=== PATIENT | female | born 1990 | race Caucasian/White ===

== ENCOUNTER 2018-01-19 20:39 | Emergency (ER) | payer BC, OTHER ==
[2018-01-19] MEDS ORDERED: Sodium Chloride 0.9% 10 ML Syringe FLUSH PRN (20:57)
[2018-01-19] MEDS ORDERED: Ondansetron 4 MG/2 ML SDV IVPUSH ONE (21:20)
[2018-01-19] MEDS ORDERED: Sodium Chloride 0.9% 1,000 ML IV ONE ×2 (21:20→22:23)
[2018-01-19 21:24] LABS: CHLORIDE,CL 104 mmol/L (98-107); SODIUM,NA 139 mmol/L (136-145)
[2018-01-19] MEDS ORDERED: Ketorolac 30 MG/ML SDV IVPUSH ONE (21:36)
[2018-01-19] MEDS ORDERED: Loperamide 2 MG Tab PO ONE (21:37)
--- NOTE | 2018-01-19 21:48 | EDM.PDOC ---
ED HPI GENERAL MEDICAL PROBLEM - General Chief Complaint: Gastrointestinal Problem Stated Complaint: nausea, vomitting, diarrhea Time Seen by Provider: 01/19/18 21:19 Source of Information: Reports: Patient History Limitations: Reports: No Limitations - History of Present Illness INITIAL COMMENTS - FREE TEXT/NARRATIVE: Patient comes to ER with complaint of lightheadedness with recent history of vomiting and loose stools. Illness began yesterday. Thinks that she vomited over a dozen times. Today she had diarrhea, 6-8 bowel movements. No obvious blood, however stools were a bit dark. Last BM was around 6pm. No fevers/chills. No respiratory complaints. Tried to take Imodium yesterday but threw it up. Tried to drink milk today but threw that up. Not much PO intake over the last 24+ hours. Was trying to head to work at [employer] but felt lightheaded as she drove. No other complaints. Hx of GERD and anxiety. Abdomen Pain Score (Numeric/FACES): 6 Headache Pain Score (Numeric/FACES): 6 - Related Data Allergies Allergy/AdvReac Type Severity Reaction Status Date / Time No Known Allergies Allergy Verified 01/19/18 20:48 Home Meds: Home Meds Citalopram [Citalopram HBr] 20 mg PO DAILY 01/19/18 [History] Omeprazole 20 mg PO DAILY 01/19/18 [History] Oxybutynin [Oxybutynin ER] 5 mg PO DAILY 01/19/18 [History] Past Medical History Gastrointestinal History: Reports: GERD Psychiatric History: Reports: Anxiety - History Comment History Comment: excess sweating Social & Family History - Tobacco Use Smoking Status *Q: Former Smoker Years of Tobacco use: 2 Packs/Tins Daily: 1 Used Tobacco, but Quit: Yes Month/Year Tobacco Last Used: 1 - Caffeine Use Caffeine Use: Reports: Coffee - Recreational Drug Use Recreational Drug Use: No ED ROS GENERAL - Review of Systems Review Of Systems: See Below Constitutional: Reports: Fatigue, Decreased Appetite. Denies: Fever, Chills, Diaphoresis HEENT: Reports: No Symptoms Respiratory: Reports: No Symptoms Cardiovascular: Reports: Lightheadedness. Denies: Palpitations, Syncope GI/Abdominal: Reports: Abdominal Pain (crampy), Diarrhea, Decreased Appetite, Nausea, Vomiting. Denies: Black Stool, Bloody Stool, Difficulty Swallowing, Distension, Hematemesis, Hematochezia : Reports: No Symptoms Musculoskeletal: Reports: No Symptoms Skin: Reports: No Symptoms Neurological: Denies: Confusion, Headache, Syncope, Difficulty Walking, Change in Speech, Gait Disturbance Psychiatric: Reports: No Symptoms ED EXAM, GI/ABD - Physical Exam Exam: See Below Exam Limited By: No Limitations General Appearance: Alert, WD/WN, No Apparent Distress Eyes: Bilateral: Normal Appearance, EOMI Ears: Normal External Exam Nose: Normal Inspection Throat/Mouth: Normal Inspection, Normal Lips, Normal Voice, No Airway Compromise Head: Atraumatic, Normocephalic Neck: Normal Inspection, Supple, Non-Tender, Full Range of Motion. No: Lymphadenopathy (L), Lymphadenopathy (R) Respiratory/Chest: No Respiratory Distress, Lungs Clear, Normal Breath Sounds, No Accessory Muscle Use Cardiovascular: Normal Peripheral Pulses, Regular Rate, Rhythm, No Murmur GI/Abdominal Exam: Normal Bowel Sounds, Soft, No Distention, Tender (mild diffuse tenderness throughout) (Female) Exam: Deferred Rectal (Female) Exam: Heme - Stool Back Exam: Normal Inspection Extremities: Normal Range of Motion, Non-Tender, No Pedal Edema, Slow Capillary Refill (3-4 seconds) Neurological: Alert, Oriented, Normal Cognition, Normal Gait, No Motor/Sensory Deficits Psychiatric: Normal Affect, Normal Mood Skin Exam: Warm, Dry, Intact, Normal Color Course - Vital Signs Last Recorded V/S: Last Vital Signs Temp 36.8 C 01/19/18 20:39 Pulse 59 L 01/19/18 20:39 Resp 16 01/19/18 20:39 BP 108/58 L 01/19/18 20:39 Pulse Ox 99 01/19/18 20:39 - Orders/Labs/Meds Orders: Active Orders 24 hr Category Date Time Status HCG QUALITATIVE,URINE [URCHEM] Stat Lab 01/19/18 20:57 Ordered UA W/MICROSCOPIC [URIN] Stat Lab 01/19/18 20:57 Ordered VITAMIN D,25-HYDROXY [CHEM] Routine Lab 01/19/18 21:28 Ordered Sodium Chloride 0.9% [Normal Saline] 1,000 ml Med 01/19/18 21:20 Ordered IV .BOLUS Sodium Chloride 0.9% [Saline Flush] Med 01/19/18 20:57 Active 10 ml FLUSH ASDIRECTED PRN Saline Lock Insert [OM.PC] Routine Oth 01/19/18 20:57 Ordered Medication Orders Sodium Chloride (Normal Saline) 1,000 mls @ 999 mls/hr IV .BOLUS ONE Stop: 01/19/18 22:20 Last Admin: 01/19/18 21:29 Dose: 999 mls/hr Sodium Chloride (Saline Flush) 10 ml FLUSH ASDIRECTED PRN PRN Reason: Keep Vein Open Labs: Laboratory Tests 01/19/18 01/19/18 01/19/18 Range/Units 20:15 20:57 20:57 WBC (4.0-10.2) K/uL RBC (3.77-5.09) M/uL Hgb (11.7-15.5) g/dL Hct (34.0-46.0) % MCV (84.0-98.0) fL MCH (28.2-33.3) pg MCHC (31.7-36.0) g/dL RDW (11.2-14.1) % Plt Count (150-350) K/uL Neut % (Auto) (45.0-80.0) % Lymph % (Auto) (10.0-50.0) % [place] % (Auto) (2.0-14.0) % Eos % (Auto) (0.0-5.0) % Baso % (Auto) (0.0-2.0) % Neut # (Auto) (1.40-7.00) K/uL Lymph # (Auto) (0.50-3.50) K/uL [place] # (Auto) (0.00-1.00) K/uL Eos # (Auto) (0.00-0.50) K/uL Baso # (Auto) (0.00-0.20) K/uL Sodium 139 (136-145) mmol/L Potassium 3.8 (3.5-5.1) mmol/L Chloride 104 (98-107) mmol/L Carbon Dioxide 25.2 (21.0-32.0) mmol/L BUN 14 (7-18) mg/dL Creatinine 0.78 (0.51-1.17) mg/dL Est Cr Clr Drug Dosing 115.23 mL/min Estimated GFR (MDRD) > 60 mL/min Glucose 95 (74-106) mg/dL Calcium 9.1 (8.5-10.1) mg/dL Magnesium (1.8-2.4) mg/dL Total Bilirubin 1.0 (0.2-1.0) mg/dL AST 19 (15-37) U/L ALT 30 (12-78) U/L Alkaline Phosphatase 59 (46-116) IU/L Total Protein 7.1 (6.4-8.2) g/dL Albumin 3.9 (3.4-5.0) g/dL Specimen Type Urinblad Urine Color Yellow Urine Appearance Clear Urine pH 5.0 (5.0-9.0) Ur Specific [place] >= 1.030 (1.005-1.030) Urine Protein Negative (NEGATIVE) mg/dL Urine Glucose (UA) Negative (NEGATIVE) mg/dL Urine Ketones Trace H (NEGATIVE) mg/dL Urine Occult Blood Trace-lysed H (NEGATIVE) Urine Nitrite Negative (NEGATIVE) Urine Bilirubin Small H (NEGATIVE) Urine Urobilinogen 0.2 (0.2-1.0) E.U./dL Ur Leukocyte Esterase Negative (NEGATIVE) Urine RBC 0-5 /HPF Urine WBC 0-5 /HPF Ur Epithelial Cells Moderate H /LPF Urine Bacteria Few (NONE TO FEW) /HPF Urine HCG, Qual Negative 01/19/18 01/19/18 Range/Units 21:05 21:05 WBC 6.1 (4.0-10.2) K/uL RBC 4.54 (3.77-5.09) M/uL Hgb 13.9 (11.7-15.5) g/dL Hct 41.0 (34.0-46.0) % MCV 90.3 (84.0-98.0) fL MCH 30.6 (28.2-33.3) pg MCHC 33.9 (31.7-36.0) g/dL RDW 12.3 (11.2-14.1) % Plt Count 186 (150-350) K/uL Neut % (Auto) 58.2 (45.0-80.0) % Lymph % (Auto) 32.7 (10.0-50.0) % [place] % (Auto) 8.1 (2.0-14.0) % Eos % (Auto) 0.7 (0.0-5.0) % Baso % (Auto) 0.3 (0.0-2.0) % Neut # (Auto) 3.52 (1.40-7.00) K/uL Lymph # (Auto) 1.98 (0.50-3.50) K/uL [place] # (Auto) 0.49 (0.00-1.00) K/uL Eos # (Auto) 0.04 (0.00-0.50) K/uL Baso # (Auto) 0.02 (0.00-0.20) K/uL Sodium (136-145) mmol/L Potassium (3.5-5.1) mmol/L Chloride (98-107) mmol/L Carbon Dioxide (21.0-32.0) mmol/L BUN (7-18) mg/dL Creatinine (0.51-1.17) mg/dL Est Cr Clr Drug Dosing mL/min Estimated GFR (MDRD) mL/min Glucose (74-106) mg/dL Calcium (8.5-10.1) mg/dL Magnesium 1.9 (1.8-2.4) mg/dL Total Bilirubin (0.2-1.0) mg/dL AST (15-37) U/L ALT (12-78) U/L Alkaline Phosphatase (46-116) IU/L Total Protein (6.4-8.2) g/dL Albumin (3.4-5.0) g/dL Specimen Type Urine Color Urine Appearance Urine pH (5.0-9.0) Ur Specific [place] (1.005-1.030) Urine Protein (NEGATIVE) mg/dL Urine Glucose (UA) (NEGATIVE) mg/dL Urine Ketones (NEGATIVE) mg/dL Urine Occult Blood (NEGATIVE) Urine Nitrite (NEGATIVE) Urine Bilirubin (NEGATIVE) Urine Urobilinogen (0.2-1.0) E.U./dL Ur Leukocyte Esterase (NEGATIVE) Urine RBC /HPF Urine WBC /HPF Ur Epithelial Cells /LPF Urine Bacteria (NONE TO FEW) /HPF Urine HCG, Qual Meds: Medications Generic Name Dose Route Start Last Admin Trade Name Freq PRN Reason Stop Dose Admin Sodium Chloride 1,000 mls @ 999 mls/hr 01/19/18 21:20 01/19/18 21:29 Normal Saline IV 06/25/18 22:20 999 mls/hr .BOLUS ONE Administration Sodium Chloride 10 ml 01/19/18 20:57 Saline Flush FLUSH ASDIRECTED PRN Keep Vein Open Discontinued Medications Generic Name Dose Route Start Last Admin Trade Name Woody PRN Reason Stop Dose Admin Ketorolac Tromethamine 30 mg 01/19/18 21:36 Toradol IVPUSH 01/19/18 21:37 ONETIME ONE Loperamide HCl 4 mg 01/19/18 21:37 Imodium Ad PO 01/19/18 21:38 ONETIME ONE Ondansetron HCl 4 mg 01/19/18 21:20 01/19/18 21:31 Zofran IVPUSH 01/19/18 21:21 4 mg ONETIME ONE Administration - Re-Assessments/Exams Free Text/Narrative Re-Assessment/Exam: 01/19/18 22:26 Patient received IV fluid bolus (sluggish cap refill suggested dehydration) as well as Zofran, Toradol, and Imodium. Second liter of fluid added as patient did not feel urge to void after first liter infused. She felt improved overall. Note given for patient to miss work tonight. To follow up tomorrow for recheck if no additional improvement is noted. Departure - Departure Disposition: Home, Self-Care 01 Condition: Good Clinical Impression: Gastroenteritis, Dehydration - Discharge Information Instructions: Dehydration, Adult, [id number] Additional Instructions: Drink plenty of fluids. Advance diet as tolerated. Avoid dairy for the next 2-3 days. Follow up as needed if you continue to have problems. - My Orders Last 24 Hours: My Active Orders 01/19/18 20:57 HCG QUALITATIVE,URINE [URCHEM] Stat UA W/MICROSCOPIC [URIN] Stat Sodium Chloride 0.9% [Saline Flush] 10 ml FLUSH ASDIRECTED PRN Saline Lock Insert [OM.PC] Routine 01/19/18 21:20 Sodium Chloride 0.9% [Normal Saline] 1,000 ml IV .BOLUS 01/19/18 21:28 VITAMIN D,25-HYDROXY [CHEM] Routine - Assessment/Plan Last 24 Hours: My Active Orders 01/19/18 20:57 HCG QUALITATIVE,URINE [URCHEM] Stat UA W/MICROSCOPIC [URIN] Stat Sodium Chloride 0.9% [Saline Flush] 10 ml FLUSH ASDIRECTED PRN Saline Lock Insert [OM.PC] Routine 01/19/18 21:20 Sodium Chloride 0.9% [Normal Saline] 1,000 ml IV .BOLUS 01/19/18 21:28 VITAMIN D,25-HYDROXY [CHEM] Routine
== END 2018-01-19 23:46 | disposition home or self-care (01) ==
LOC: LL.ED 20:39
DX: K52.9 Noninfective gastroenteritis and colitis, unspecified (principal); E86.0 Dehydration; K21.9 Gastro-esophageal reflux disease without esophagitis; F41.9 Anxiety disorder, unspecified; Z87.891 Personal history of nicotine dependence; Z79.899 Other long term (current) drug therapy
CPT/HCPCS: 36415; 80053; 81001; 81025; 82272; 82306; 83735; 85025; 96361; 96374; 99284; A9270-GY; J1885; J2405; J7030

== ENCOUNTER 2019-05-02 21:56 | Emergency (ER) | payer BC ==
[2019-05-02] MEDS ORDERED: NS + KCl 20mEq/L 1,000 ML IV SCH (22:15)
[2019-05-02] MEDS: Sodium Chloride 0.9% 10 ML Syringe FLUSH PRN ×2 (22:30→22:45)
[2019-05-02] MEDS ORDERED: Metoclopramide 10 MG/2 ML SDV IVPUSH ONE (22:36)
--- NOTE | 2019-05-02 22:42 | EDM.PDOC ---
ED HPI GENERAL MEDICAL PROBLEM - General Chief Complaint: General Stated Complaint: emesis, fever Time Seen by Provider: 05/02/19 22:00 Source of Information: Reports: Patient History Limitations: Reports: No Limitations - History of Present Illness INITIAL COMMENTS - FREE TEXT/NARRATIVE: Patient seen with multiple emesis which started about 3 days ago today unable to tolerate liquids will go ahead and start an IV fluids and start her on Reglan which is a category B antibiotic Onset: Gradual Duration: Day(s): Location: Reports: Abdomen Quality: Reports: Ache Severity: Moderate Improves with: Reports: None Worsens with: Reports: Eating Associated Symptoms: Reports: Nausea/Vomiting - Related Data Allergies Allergy/AdvReac Type Severity Reaction Status Date / Time No Known Allergies Allergy Verified 05/02/19 21:57 Home Meds: Home Meds Citalopram [Citalopram HBr] 20 mg PO DAILY 01/19/18 [History] Omeprazole 20 mg PO DAILY 01/19/18 [History] Oxybutynin [Oxybutynin ER] 5 mg PO DAILY 01/19/18 [History] PNV95/Ferrous Fumarate/FA [ Vitamin Tablet] 1 tab PO DAILY 05/02/19 [ History] Past Medical History Gastrointestinal History: Reports: GERD Other Gastrointestinal History: stomach ulcer Psychiatric History: Reports: Anxiety - History Comment History Comment: excess sweating Social & Family History - Tobacco Use Smoking Status *Q: Former Smoker Used Tobacco, but Quit: Yes Month/Year Tobacco Last Used: 03/2019 - Caffeine Use Caffeine Use: Reports: Coffee - Recreational Drug Use Recreational Drug Use: No ED ROS GENERAL - Review of Systems Review Of Systems: See Below Constitutional: Reports: Other (Emesis) HEENT: Reports: No Symptoms Respiratory: Reports: No Symptoms Cardiovascular: Reports: No Symptoms Endocrine: Reports: No Symptoms GI/Abdominal: Reports: No Symptoms : Reports: No Symptoms Musculoskeletal: Reports: No Symptoms Skin: Reports: No Symptoms Neurological: Reports: No Symptoms Psychiatric: Reports: No Symptoms Hematologic/Lymphatic: Reports: No Symptoms ED EXAM, GENERAL - Physical Exam Exam: See Below Exam Limited By: No Limitations General Appearance: Alert, WD/WN, No Apparent Distress Ears: Normal External Exam, Normal Canal, Hearing Grossly Normal, Normal TMs Ear Exam: Bilateral Ear: Auricle Normal, Canal Normal, TM normal Nose: Normal Inspection, Normal Mucosa, No Blood Throat/Mouth: Normal Inspection, Normal Lips, Normal Teeth, Normal Gums, Normal Oropharynx, Normal Voice, No Airway Compromise Head: Atraumatic, Normocephalic Neck: Normal Inspection, Supple, Non-Tender, Full Range of Motion Respiratory/Chest: No Respiratory Distress, Lungs Clear, Normal Breath Sounds, No Accessory Muscle Use, Chest Non-Tender Cardiovascular: Normal Peripheral Pulses, Regular Rate, Rhythm, No Edema, No Gallop, No JVD, No Murmur, No Rub GI/Abdominal: Normal Bowel Sounds, Soft, Non-Tender, No Organomegaly, No Distention, No Abnormal Bruit, No Mass Back Exam: Decreased Range of Motion Extremities: Normal Inspection, Normal Range of Motion, Non-Tender, Normal Capillary Refill, No Pedal Edema Neurological: Alert, Oriented, CN II-XII Intact, Normal Cognition, Normal Gait, Normal Reflexes, No Motor/Sensory Deficits Psychiatric: Normal Affect, Normal Mood Skin Exam: Warm, Dry, Intact, Normal Color, No Rash Lymphatic: No Adenopathy Course - Vital Signs Last Recorded V/S: Last Vital Signs Temp 98.4 F 05/02/19 22:01 Pulse 67 05/02/19 22:01 Resp 16 05/02/19 22:01 BP 111/59 L 05/02/19 22:01 Pulse Ox 100 05/02/19 22:01 - Orders/Labs/Meds Orders: Active Orders 24 hr Category Date Time Status UA W/MICROSCOPIC [URIN] Stat Lab 05/02/19 22:41 Ordered NS + KCl 20mEq/L [Normal Saline with 20 mEq KCl] 1,000 Med 05/02/19 22:15 Active ml IV ASDIRECTED Sodium Chloride 0.9% [Saline Flush] Med 05/02/19 22:09 Active 10 ml FLUSH ASDIRECTED PRN Saline Lock Insert [OM.PC] Stat Oth 05/02/19 22:10 Ordered Medication Orders Potassium Chloride/Sodium Chloride (Normal Saline With 20 Meq Kcl) 1,000 mls @ 999 mls/hr IV ASDIRECTED ANA LAURA Last Admin: 05/02/19 22:30 Dose: 999 mls/hr Sodium Chloride (Saline Flush) 10 ml FLUSH ASDIRECTED PRN PRN Reason: Keep Vein Open Last Admin: 05/02/19 22:45 Dose: 10 ml Admin: 05/02/19 22:30 Dose: 10 ml Labs: Laboratory Tests 05/02/19 05/02/19 Range/Units 22:16 22:16 WBC 5.2 (4.0-10.2) K/uL RBC 4.43 (3.77-5.09) M/uL Hgb 13.4 (11.7-15.5) g/dL Hct 39.1 (34.0-46.0) % MCV 88.3 (84.0-98.0) fL MCH 30.2 (28.2-33.3) pg MCHC 34.3 (31.7-36.0) g/dL RDW 13.1 (11.2-14.1) % Plt Count 183 (150-350) K/uL Neut % (Auto) 55.7 (45.0-80.0) % Lymph % (Auto) 35.3 (10.0-50.0) % [place] % (Auto) 7.6 (2.0-14.0) % Eos % (Auto) 1.0 (0.0-5.0) % Baso % (Auto) 0.4 (0.0-2.0) % Neut # (Auto) 2.92 (1.40-7.00) K/uL Lymph # (Auto) 1.85 (0.50-3.50) K/uL [place] # (Auto) 0.40 (0.00-1.00) K/uL Eos # (Auto) 0.05 (0.00-0.50) K/uL Baso # (Auto) 0.02 (0.00-0.20) K/uL Sodium 139 (136-145) mmol/L Potassium 3.9 (3.5-5.1) mmol/L Chloride 105 (98-107) mmol/L Carbon Dioxide 20.8 L (21.0-32.0) mmol/L BUN 11 (7-18) mg/dL Creatinine 0.61 (0.51-1.17) mg/dL Est Cr Clr Drug Dosing 146.06 mL/min Estimated GFR (MDRD) > 60 mL/min Glucose 85 (74-106) mg/dL Calcium 9.1 (8.5-10.1) mg/dL Meds: Medications Generic Name Dose Route Start Last Admin Trade Name Freq PRN Reason Stop Dose Admin Potassium Chloride/Sodium Chloride 1,000 mls @ 999 mls/hr 05/02/19 22:15 01/13 22:30 Normal Saline With 20 Meq Kcl IV 999 mls/hr ASDIRECTED ANA LAURA Administration Sodium Chloride 10 ml 05/02/19 22:09 05/02/19 22:45 Saline Flush FLUSH 10 ml ASDIRECTED PRN Administration Keep Vein Open Discontinued Medications Generic Name Dose Route Start Last Admin Trade Name Woody PRN Reason Stop Dose Admin Metoclopramide HCl 10 mg 05/02/19 22:36 05/02/19 22:44 Reglan IVPUSH 05/02/19 22:37 10 mg ONETIME ONE Administration Departure - Departure Time of Disposition: 23:34 Disposition: Home, Self-Care 01 Condition: Fair Clinical Impression: Hyperemesis gravidarum with dehydration - Discharge Information *PRESCRIPTION DRUG MONITORING PROGRAM REVIEWED*: No *COPY OF PRESCRIPTION DRUG MONITORING REPORT IN PATIENT VESTA: No Referrals: Jovi Foss, PA [Primary Care Provider] - Forms: ED Department Discharge Care Plan Goals: Patient placed on IV normal saline 1 L will be given Reglan 10 mg IV will be given if tolerating well she will be sent home to follow-up with her [employer] - My Orders Last 24 Hours: My Active Orders 05/02/19 22:09 Sodium Chloride 0.9% [Saline Flush] 10 ml FLUSH ASDIRECTED PRN 05/02/19 22:10 Saline Lock Insert [OM.PC] Stat 05/02/19 22:15 NS + KCl 20mEq/L [Normal Saline with 20 mEq KCl] 1,000 ml IV ASDIRECTED 05/02/19 22:41 UA W/MICROSCOPIC [URIN] Stat - Assessment/Plan Last 24 Hours: My Active Orders 05/02/19 22:09 Sodium Chloride 0.9% [Saline Flush] 10 ml FLUSH ASDIRECTED PRN 05/02/19 22:10 Saline Lock Insert [OM.PC] Stat 05/02/19 22:15 NS + KCl 20mEq/L [Normal Saline with 20 mEq KCl] 1,000 ml IV ASDIRECTED 05/02/19 22:41 UA W/MICROSCOPIC [URIN] Stat
[2019-05-02 22:44] LABS: CHLORIDE,CL 105 mmol/L (98-107); SODIUM,NA 139 mmol/L (136-145)
== END 2019-05-03 | disposition home or self-care (01) ==
LOC: LL.ED 21:56
DX: O21.1 Hyperemesis gravidarum with metabolic disturbance (principal); O99.611 Diseases of the digestive system complicating pregnancy, first trimester; K21.9 Gastro-esophageal reflux disease without esophagitis; Z79.899 Other long term (current) drug therapy; Z87.891 Personal history of nicotine dependence; Z3A.12 12 weeks gestation of pregnancy
CPT/HCPCS: 36415; 80048; 81001; 85025; 96361; 96374; 99284; J2765; J3480

== ENCOUNTER 2020-11-30 07:49 | Day surgery (SDC) | payer BC, OTHER ==
[2020-11-30] MEDS ORDERED: Sodium Chloride 0.9% 10 ML Syringe FLUSH PRN (08:00)
[2020-11-30] MEDS ORDERED: Propofol 200 MG/20 ML SDV ONE ×2 (08:29→09:00)
[2020-11-30] MEDS ORDERED: Midazolam 1 MG/ML 2 ML SDV ONE ×2 (08:29→09:00)
[2020-11-30] MEDS: Lactated Ringers 1,000 ML IV SCH (08:45)
[2020-11-30] MEDS ORDERED: Lidocaine 0.5% 50 ML SDV ONE (09:00)
--- NOTE | 2020-11-30 09:07 | PCM.PN ---
- General Info Date of Service: 11/30/20 - Review of Systems Systems Review Comment:: 30-year-old female with history of bilateral carpal tunnel syndrome here for right carpal tunnel release. The patient is medically stable to proceed today. Her recent history and physical is reviewed and no significant changes are noted. The site is confirmed with the patient and marked. I have again discussed the proposed operative procedure with the patient. Perioperative instructions and expectations are reviewed. Questions were answered. She agrees to proceed. - Patient Data Vitals - Most Recent: Last Vital Signs Temp 97.6 F 11/30/20 08:28 Pulse 73 11/30/20 08:28 Resp 18 11/30/20 08:28 BP 113/70 11/30/20 08:28 Pulse Ox 98 11/30/20 08:28 Weight - Most Recent: 116.12 kg Lab Results Last 24 Hours: Laboratory Results - last 24 hr 11/30/20 Range/Units 08:04 Urine HCG, Qual Negative Med Orders - Current: Current Medications Lactated Ringer's (Ringers, Lactated) 1,000 mls @ 125 mls/hr IV ASDIRECTED ANA LAURA Last Admin: 11/30/20 08:45 Dose: 125 mls/hr Documented by: Sodium Chloride (Sodium Chloride 0.9% 10 Ml Syringe) 10 ml FLUSH ASDIRECTED PRN PRN Reason: Keep Vein Open Discontinued Medications Midazolam HCl (Midazolam 1 Mg/Ml 2 Ml Sdv) Confirm Administered Dose 4 mg .ROUTE .STK-MED ONE Stop: 11/30/20 08:30 Propofol (Propofol 200 Mg/20 Ml Sdv) Confirm Administered Dose 400 mg .ROUTE .STK-MED ONE Stop: 11/30/20 08:30 - Patient Data Lab Results Last 24 hrs: Laboratory Results - last 24 hr 11/30/20 Range/Units 08:04 Urine HCG, Qual Negative Sepsis Event Note - Focused Exam Vital Signs: Vital Signs Temp Pulse Resp BP Pulse Ox 11/30/20 08:28 97.6 F 73 18 113/70 98 - Problem List Review Problem List Initiated/Reviewed/Updated: Yes - My Orders Last 24 Hours: My Active Orders 11/30/20 08:00 Patient Status [ADT] Routine Peripheral IV Care [RC] . DIRECTED Verify Patient Consent Obtain [RC] ASDIRECTED Lactated Ringers [Ringers, Lactated] 1,000 ml IV ASDIRECTED Sodium Chloride 0.9% [Saline Flush] 10 ml FLUSH ASDIRECTED PRN Peripheral IV Insertion Adult [OM.PC] Routine - Assessment Assessment:: Right carpal tunnel syndrome - Plan Plan:: Right carpal tunnel release
[2020-11-30] MEDS: Bupivacaine 0.25%/EPINEPHrine 1:200,000 30 ML SDV INFILT ONE (09:25)
--- NOTE | 2020-11-30 09:49 | PCM.OPNOTE ---
- General Post-Op/Procedure Note Date of Surgery/Procedure: 11/30/20 Operative Procedure(s): Right Carpal Tunnel Release Findings: Thickened right transverse carpal ligament causing pressure on the median nerve at the wrist. Pre Op Diagnosis: Right carpal tunnel syndrome Post-Op Diagnosis: Same Anesthesia Technique: Regional Block Primary Surgeon: Abner Carroll Pathology: none EBL in mLs: 3 Complications: None Condition: Good
--- NOTE | 2020-11-30 12:23 | OR ---
Date of Procedure: 11/30/2020 PREOPERATIVE DIAGNOSIS: Right carpal tunnel syndrome. POSTOPERATIVE DIAGNOSIS: Right carpal tunnel syndrome. OPERATION PERFORMED: Right carpal tunnel release. INDICATIONS FOR SURGERY: This 30-year-old female has developed symptoms of right carpal tunnel syndrome in her right hand. EMG has documented this condition and it is not improving with conservative management. FINDINGS: The patient's right transverse carpal ligament has thickened causing pressure on the underlying median nerve. The nerve itself, otherwise, appears normal. DESCRIPTION OF PROCEDURE: The patient was taken to the operating room. She was given IV regional anesthesia in the right hand which was sterilely prepped and draped. A longitudinally-oriented curvilinear incision was made over the palmar surface of the right wrist. Dissection proceeded down onto the transverse carpal ligament which was incised over and parallel to the course of the underlying median nerve. The ligament was completely divided at this level as are any potentially constricting fibrous bands proximally and distally. Great care was used to avoid any injury to the nerve or its branches. After the nerve had been completely released at this level and with no sign of any complication, the wound was irrigated and then closed approximating the skin edges with interrupted 4-0 Prolene in a mattress technique. The wound was infiltrated with Marcaine. Antibiotic ointment and a sterile bulky dressing were placed. This was held in position with an Mro bandage. The tourniquet was released, and the patient was taken from the operating room in satisfactory condition. ESTIMATED BLOOD LOSS: 3 mL. COMPLICATIONS: None. PROGNOSIS: Good. MILDRED Carroll MD /[id number]
== END 2020-11-30 10:40 | disposition home or self-care (01) ==
LOC: LL.SDS 07:49
PROVIDERS: ATTEND Surgery
DX: G56.03 Carpal tunnel syndrome, bilateral upper limbs (principal); K21.9 Gastro-esophageal reflux disease without esophagitis; F17.210 Nicotine dependence, cigarettes, uncomplicated; E66.9 Obesity, unspecified; Z98.890 Other specified postprocedural states; Z79.899 Other long term (current) drug therapy; Z20.828 Contact with and (suspected) exposure to other viral communicable diseases; Z68.37 Body mass index [BMI] 37.0-37.9, adult
CPT/HCPCS: 01830; 81025; J2250; J2704; J7120; U0002

== ENCOUNTER 2020-12-14 08:03 | Day surgery (SDC) | payer BC ==
[~2020-12-14 08:03] MED LIST: Lactated Ringers 1,000 ML IV SCH; Sodium Chloride 0.9% 10 ML Syringe FLUSH PRN
[2020-12-14] MEDS ORDERED: Midazolam 1 MG/ML 2 ML SDV ONE ×2 (08:23→09:05)
[2020-12-14] MEDS ORDERED: Propofol 200 MG/20 ML SDV ONE ×3 (08:24→10:00)
[2020-12-14] MEDS ORDERED: Lidocaine 0.5% 50 ML SDV ONE (09:05)
--- NOTE | 2020-12-14 09:13 | PCM.PN ---
- General Info Date of Service: 12/14/20 - Review of Systems Systems Review Comment:: 30-year-old female here for left carpal tunnel release. She has done well after her recent right carpal tunnel release. Examination today shows that her incision is healing well and she has good mobility of her fingers and wrist on that hand. The site for today's left carpal tunnel release is confirmed with the patient and marked. The procedure is reviewed with her as well as discussing the anticipated gonzalo and postoperative instructions. She agrees to proceed. - Patient Data Vitals - Most Recent: Last Vital Signs Temp 96.7 F L 12/14/20 08:53 Pulse 51 L 12/14/20 08:53 Resp 18 12/14/20 08:53 BP 100/52 L 12/14/20 08:53 Pulse Ox 100 12/14/20 08:53 Weight - Most Recent: 115.666 kg Lab Results Last 24 Hours: Laboratory Results - last 24 hr 12/14/20 Range/Units 08:10 Urine HCG, Qual Negative Med Orders - Current: Current Medications Lactated Ringer's (Ringers, Lactated) 1,000 mls @ 125 mls/hr IV ASDIRECTED ANA LAURA Last Admin: 12/14/20 08:36 Dose: 125 mls/hr Documented by: Sodium Chloride (Sodium Chloride 0.9% 10 Ml Syringe) 10 ml FLUSH ASDIRECTED PRN PRN Reason: Keep Vein Open Discontinued Medications Midazolam HCl (Midazolam 1 Mg/Ml 2 Ml Sdv) Confirm Administered Dose 4 mg .ROUTE .STK-MED ONE Stop: 12/14/20 08:24 Propofol (Propofol 200 Mg/20 Ml Sdv) Confirm Administered Dose 200 mg .ROUTE .STK-MED ONE Stop: 12/14/20 08:25 - Patient Data Lab Results Last 24 hrs: Laboratory Results - last 24 hr 12/14/20 Range/Units 08:10 Urine HCG, Qual Negative Sepsis Event Note - Focused Exam Vital Signs: Vital Signs Temp Pulse Resp BP Pulse Ox 12/14/20 08:53 96.7 F L 51 L 18 100/52 L 100 - Problem List Review Problem List Initiated/Reviewed/Updated: Yes - My Orders Last 24 Hours: My Active Orders 12/14/20 08:00 Patient Status [ADT] Routine Peripheral IV Care [RC] . DIRECTED Verify Patient Consent Obtain [RC] ASDIRECTED Lactated Ringers [Ringers, Lactated] 1,000 ml IV ASDIRECTED Sodium Chloride 0.9% [Saline Flush] 10 ml FLUSH ASDIRECTED PRN Peripheral IV Insertion Adult [OM.PC] Routine - Assessment Assessment:: Left carpal tunnel syndrome - Plan Plan:: Left carpal tunnel release
[2020-12-14] MEDS ORDERED: Bupivacaine 0.25%/EPINEPHrine 1:200,000 30 ML SDV INFILT ONE (09:32)
--- NOTE | 2020-12-14 09:54 | PCM.OPNOTE ---
- General Post-Op/Procedure Note Date of Surgery/Procedure: 12/14/20 Operative Procedure(s): Left Carpal Tunnel Release Findings: Thick left transverse carpal ligament - median nerve otherwise appears normal Pre Op Diagnosis: Left Carpal Tunnel Syndrome Post-Op Diagnosis: Same Anesthesia Technique: Regional Block Primary Surgeon: Abner Carroll Pathology: none EBL in mLs: 2 Complications: None Condition: Good
--- NOTE | 2020-12-14 10:46 | OR ---
Date of Procedure: 12/14/2020 PREOPERATIVE DIAGNOSIS: Left carpal tunnel syndrome. POSTOPERATIVE DIAGNOSIS: Left carpal tunnel syndrome. PROCEDURE PERFORMED: Left carpal tunnel release. INDICATIONS FOR SURGERY: This 30-year-old female has developed left carpal tunnel syndrome, which has not responded to conservative management and she comes for surgical left carpal tunnel release. FINDINGS: The patient's left transverse carpal ligament is thickened causing compression on the underlying median nerve. The nerve and structures in this area, otherwise, appear normal. DESCRIPTION OF PROCEDURE: The patient was taken to the operating room. She was given IV regional anesthesia in the left hand, which was then sterilely prepped and draped. A longitudinally oriented curvilinear incision was made along the palmar surface of the left wrist. Dissection proceeded down onto the left transverse carpal ligament which was incised over and parallel to the course of the underlying median nerve. The ligament was completely divided at this level as are any potentially constricting fibrous bands proximally and distally. Great care was used to avoid any injury to the nerve or its branches. Once the nerve had been completely released here, the wound was irrigated and then closed reapproximating the skin with interrupted 4-0 Prolene in a mattress technique. The wound was infiltrated with Marcaine. Antibiotic ointment and a sterile pressure dressing were applied. This was held in position with an Mor bandage. Tourniquet was released, and the patient was taken from the operating room in satisfactory condition. ESTIMATED BLOOD LOSS: 2 mL. COMPLICATIONS: None. PROGNOSIS: Good. MILDRED Carroll MD /[id number]
[2020-12-14 14:49] VITALS: BP 105/64; PULSE 62
== END 2020-12-14 11:46 | disposition home or self-care (01) ==
LOC: LL.SDS 08:03
PROVIDERS: ATTEND Surgery
DX: G56.03 Carpal tunnel syndrome, bilateral upper limbs (principal); K21.9 Gastro-esophageal reflux disease without esophagitis; F17.210 Nicotine dependence, cigarettes, uncomplicated; Z79.899 Other long term (current) drug therapy; Z20.822 Contact with and (suspected) exposure to COVID-19
CPT/HCPCS: 01810; 81025; J2250; J2704; J7120; U0002

== ENCOUNTER 2022-01-31 00:45 | Emergency (ER) | payer OTHER, BC ==
[2022-01-31] MEDS ORDERED: Ketorolac 30 MG/ML SDV ONE (02:29)
[2022-01-31] MEDS ORDERED: Morphine 2 MG/ML SYRINGE ONE (02:29)
== END 2022-01-31 03:00 | disposition home or self-care (01) ==
LOC: LL.ED 00:45
DX: M25.561 Pain in right knee (principal); M25.461 Effusion, right knee; K21.9 Gastro-esophageal reflux disease without esophagitis; F17.210 Nicotine dependence, cigarettes, uncomplicated; E66.9 Obesity, unspecified; Z68.30 Body mass index [BMI] 30.0-30.9, adult; Z79.899 Other long term (current) drug therapy; W18.40XA Slipping, tripping and stumbling without falling, unspecified, initial encounter; Y99.0 Civilian activity done for income or pay
CPT/HCPCS: 73562-RT; 81025; 96372; 99283; J1885; J2270

== ENCOUNTER 2022-05-16 10:00 | Day surgery (SDC) | payer BC, OTHER ==
[~2022-05-16 10:00] MED LIST changes: +Midazolam 1 MG/ML 2 ML SDV ONE; +Propofol 200 MG/20 ML SDV ONE
[2022-05-16] MEDS ORDERED: Ketamine 500 mg/10 ML MDV ONE (10:40)
[2022-05-16] MEDS ORDERED: Lidocaine 2% 5 ML SDV ONE (10:45)
[2022-05-16] MEDS ORDERED: Glycopyrrolate 0.2 MG/ML SDV IVPUSH ONE (10:45)
[2022-05-16] MEDS ORDERED: Ondansetron 4 MG/2 ML SDV IV ONE (10:45)
== END 2022-05-16 12:20 | disposition home or self-care (01) ==
LOC: LL.SDS 10:00
PROVIDERS: ATTEND Surgery
DX: K22.10 Ulcer of esophagus without bleeding (principal); K21.9 Gastro-esophageal reflux disease without esophagitis; K44.9 Diaphragmatic hernia without obstruction or gangrene; F33.9 Major depressive disorder, recurrent, unspecified; F17.210 Nicotine dependence, cigarettes, uncomplicated; E66.9 Obesity, unspecified; Z98.890 Other specified postprocedural states; Z79.899 Other long term (current) drug therapy; Z88.5 Allergy status to narcotic agent; Z68.41 Body mass index [BMI] 40.0-44.9, adult
CPT/HCPCS: 36415; 84703; J2250; J2405; J2704; J3490; J7120

== ENCOUNTER 2024-12-09 14:00 | Emergency (ER) | payer BC ==
[2024-12-09 14:13] LABS: BASOPHILS ABSOLUTE AUTO 0.04 K/uL (0.00-0.20); BASOPHILS PERCENT AUTO 0.5 % (0.0-2.0); EOSINOPHILS ABSOLUTE AUTO 0.08 K/uL (0.00-0.50); HEMATOCRIT 37.6 % (34.0-46.0); HEMOGLOBIN 12.7 g/dL (11.7-15.5); LYMPHOCYTES ABSOLUTE AUTO 2.39 K/uL (0.50-3.50); LYMPHOCYTES PERCENT AUTO 30.1 % (10.0-50.0); MEAN CORPUSCULAR HEMOGLOBIN 29.2 pg (28.2-33.3); MEAN CORPUSCULAR HGB CONC 33.8 g/dL (31.7-36.0); MEAN CORPUSCULAR VOLUME 86.4 fL (84.0-98.0); MONOCYTES ABSOLUTE AUTO 0.59 K/uL (0.00-1.00); MONOCYTES PERCENT AUTO 7.4 % (2.0-14.0); NEUTROPHILS ABSOLUTE AUTO 4.83 K/uL (1.40-7.00); PLATELET COUNT,PLT 224 K/uL (150-350); RED BLOOD CELL COUNT 4.35 M/uL (3.77-5.09); RED CELL DISTRIBUTION WIDTH 12.1 % (11.2-14.1); WHITE BLOOD CELL COUNT,WBC 7.9 K/uL (4.0-10.2)
[2024-12-09 14:24] LABS: ANION GAP 9.9 meq/L (7-15); BLOOD UREA NITROGEN,BUN 16 mg/dL (7-18); CALCIUM 9.3 mg/dL (8.5-10.1); CARBON DIOXIDE,CO2 24.1 mmol/L (21.0-32.0); CHLORIDE,CL 106 mmol/L (98-107); CREATININE 0.67 mg/dL (0.51-1.17); ESTIMATED GFR 119 mL/min (>=60); GLUCOSE RANDOM 95 mg/dL (70-99); POTASSIUM,K 3.9 mmol/L (3.5-5.1); SODIUM,NA 140 mmol/L (136-145)
[2024-12-09 14:33] LABS: LACTIC ACID 0.8 mmol/L (0.4-2.0)
[2024-12-09 14:44] LABS: PROTHROMBIN TIME 9.9 SEC (9.0-11.1)
[2024-12-09] MEDS ORDERED: Naloxone 0.4 MG/ML SDV IVPUSH PRN (16:35)
[2024-12-09] MEDS: HYDROmorphone 0.5 MG/0.5 ML Syringe IVPUSH ONE (16:52)
[2024-12-09] MEDS: Sodium Chloride 0.9% 10 ML Syringe FLUSH PRN (16:59)
[2024-12-09] MEDS: Misoprostol 100 MCG Tab PO ONE (16:59)
[2024-12-09] MEDS ORDERED: Take Home: oxyCODONE HCl 5 MG Tab, 5 Tab Pack PO ONE (17:45)
== END 2024-12-09 18:10 | disposition home or self-care (01) ==
LOC: LL.ED 14:00
DX: O03.9 Complete or unspecified spontaneous abortion without complication (principal); K21.9 Gastro-esophageal reflux disease without esophagitis; E66.9 Obesity, unspecified; Z79.899 Other long term (current) drug therapy
CPT/HCPCS: 36415; 76801; 76817; 80048; 83605; 84702; 85025; 85610; 85730; 96374; 99284; A9270

== ENCOUNTER 2025-04-07 10:23 | Day surgery (SDC) | payer BC ==
[~2025-04-07 10:23] MED LIST changes: -Lactated Ringers 1,000 ML IV SCH; -Midazolam 1 MG/ML 2 ML SDV ONE
[2025-04-07] MEDS: Lactated Ringers 1,000 ML IV SCH (11:20)
[2025-04-07] MEDS ORDERED: Propofol 200 MG/20 ML SDV ONE (12:02)
== END 2025-04-07 12:48 | disposition home or self-care (01) ==
LOC: LL.SDS 10:23
PROVIDERS: ATTEND Surgery
DX: K52.9 Noninfective gastroenteritis and colitis, unspecified (principal); K92.1 Melena; Z80.0 Family history of malignant neoplasm of digestive organs
CPT/HCPCS: 45380; J2704; J7120; 00811